=== PATIENT | female | born 1965 | race Caucasian/White ===

== ENCOUNTER 2017-06-23 13:07 | Day surgery (SDC) | payer BC, OTHER ==
[~2017-06-23] VITALS: Ht 160 cm; Wt 77.9 kg
[~2017-06-23 13:07] MED LIST: AMLO10TA2 PO; CART180C3 PO; CRES10TA32 PO; CYCL10TA PO; GEMF600T PO; HYDR25TAB PO; METF10004 PO; NADO40TA PO; NS 1,000 ML IV ONE; OMEP20CA3 PO; POTA20TA6 PO; SPIR25TA2 PO; VENL150C43 PO; VITA1CAP40 PO
[2017-06-23] MEDS ORDERED: LIDOCAINE 2% INJ 100 MG/5 ML SDV (FOR ANES.) As Ordered ONE (14:29)
[2017-06-23] MEDS ORDERED: PROPOFOL 200 MG/20 ML VIAL As Ordered ONE ×2 (14:29→14:38)
--- NOTE | 2017-06-23 14:46 | ROOR ---
Patient Name: Rocio Spencer Procedure Date: 06/23/2017 2:25 PM Date of : 1965 Age: 51 Room: [facility] Gender: Female Note Status: Finalized Procedure: Total Colonoscopy to Cecum + Cold Snare Polypectomy + Hemoclip Indications: High risk colon cancer surveillance: Personal history of colonic polyps, Last colonoscopy: 2013 Providers: Ned Lemos MD Referring MD: AYAD ROBBINS MD Requesting Provider: Medicines: Monitored Anesthesia Care Complications: No immediate complications. Procedure: Pre-Anesthesia Assessment: - The heart rate, respiratory rate, oxygen saturations, blood pressure, adequacy of pulmonary ventilation, and response to care were monitored throughout the procedure. The Colonoscope was introduced through the anus and advanced to the cecum, identified by appendiceal orifice and ileocecal valve. The colonoscopy was performed without difficulty. The patient tolerated the procedure well. The quality of the bowel preparation was good. Findings: The perianal and digital rectal examinations were normal. Non-bleeding internal hemorrhoids were found during retroflexion. The hemorrhoids were small and Grade I (internal hemorrhoids that do not prolapse). A small polyp was found at 60 cm proximal to the anus. The polyp was sessile. The polyp was removed with a cold snare. Resection and retrieval were complete. To prevent bleeding after the polypectomy, one hemostatic clip was successfully placed (MR conditional). There was no bleeding at the end of the procedure. A small polyp was found in the hepatic flexure. The polyp was sessile. The polyp was removed with a jumbo cold forceps. Resection and retrieval were complete. The exam was otherwise without abnormality on direct and retroflexion views. Scattered small-mouthed diverticula were found in the recto-sigmoid colon, sigmoid colon and descending colon. The exam was otherwise without abnormality. Impression: - Non-bleeding internal hemorrhoids. - One small polyp at 60 cm proximal to the anus, removed with a cold snare. Resected and retrieved. Clip (MR conditional) was placed. - One small polyp at the hepatic flexure, removed with a jumbo cold forceps. Resected and retrieved. - The examination was otherwise normal on direct and retroflexion views. - Diverticulosis in the recto-sigmoid colon, in the sigmoid colon and in the descending colon. - The examination was otherwise normal. - The exam was otherwise normal to the cecum. Recommendation: - Patient has a contact number available for emergencies. The signs and symptoms of potential delayed complications were discussed with the patient. Return to normal activities tomorrow. Written discharge instructions were provided to the patient. - High fiber diet. - Discharge patient to home. - Continue present medications. - Await pathology results. - Telephone GI clinic for pathology results in 1 week. - Repeat colonoscopy for surveillance based on pathology results. - Return to referring physician. - Check Portal Online for Path Results.([email or web address] - The findings and recommendations were discussed with the patient's family. Ned Lemos MD Ned Lemos MD 06/23/2017 2:45:59 PM This report has been signed electronically. Number of Addenda: 0 Note Initiated On: 06/23/2017 2:25 PM Estimated Blood Loss: Estimated blood loss: none.
[2017-06-23 15:15] VITALS: BP 163/83
== END 2017-06-23 15:21 | disposition home or self-care (01) ==
LOC: M OPP 13:07
PROVIDERS: ATTEND Internal Medicine Gastroenterology
DX: Z12.11 Encounter for screening for malignant neoplasm of colon (principal); Z86.010 Personal history of colon polyps; D12.4 Benign neoplasm of descending colon; D12.3 Benign neoplasm of transverse colon; K57.30 Diverticulosis of large intestine without perforation or abscess without bleeding; K64.0 First degree hemorrhoids; I10 Essential (primary) hypertension; E78.5 Hyperlipidemia, unspecified; E11.9 Type 2 diabetes mellitus without complications; K44.9 Diaphragmatic hernia without obstruction or gangrene; R12 Heartburn; K21.9 Gastro-esophageal reflux disease without esophagitis; J45.909 Unspecified asthma, uncomplicated; J44.9 Chronic obstructive pulmonary disease, unspecified; M51.9 Unspecified thoracic, thoracolumbar and lumbosacral intervertebral disc disorder; M50.20 Other cervical disc displacement, unspecified cervical region; F41.9 Anxiety disorder, unspecified; F32.9 Major depressive disorder, single episode, unspecified; Z87.891 Personal history of nicotine dependence; Z88.1 Allergy status to other antibiotic agents; Z88.0 Allergy status to penicillin; Z88.2 Allergy status to sulfonamides; Z88.8 Allergy status to other drugs, medicaments and biological substances; Z88.3 Allergy status to other anti-infective agents; Z79.899 Other long term (current) drug therapy

== ENCOUNTER → 2020-05-02 | Outpatient (CLI) | payer BC, OTHER ==
[~2020-05-02] MED LIST changes: -AMLO10TA2 PO; +AMLO1TAB25 PO; +CRES10TA PO; -CRES10TA32 PO; +CYCL-707 PO; -CYCL10TA PO; -GEMF600T PO; +GEMF600T5 PO; -NS 1,000 ML IV ONE; +OMEP1CAP73 PO; -OMEP20CA3 PO; +SPIR-10 PO; -SPIR25TA2 PO; -VITA1CAP40 PO; +VITA50005 PO
--- NOTE | 2020-05-10 12:45 | REP ---
LEFT HIP PAIN HISTORY: Multiple sequences obtained in the axial, coronal, and sagittal planes. The visualized osseous structures of the pelvis demonstrate normal bone marrow signal. There is no bone marrow edema or occult fracture. There is no evidence of avascular necrosis. There is no evidence of a labral tear. No paralabral cyst is seen. There is a normal amount of joint fluid. There is mild increased signal in the tendinous structures along the greater trochanters bilaterally, suggesting mild bilateral greater trochanteric tendinobursitis. No other abnormal signal is seen in the soft tissues surrounding the left hip. Visualized intrapelvic structures are unremarkable with no evidence of mass or free fluid. IMPRESSION: Findings suggestive of mild bilateral greater trochanteric tendinobursitis. No other abnormalities are seen of the left hip. MTDD
== END ==
LOC: M RAD 15:22
PROVIDERS: ATTEND Family Medicine
DX: M25.552 Pain in left hip (principal)

== ENCOUNTER → 2021-08-15 | Outpatient (CLI) | payer BC, OTHER ==
[~2021-08-15] MED LIST changes: +HYDR-3490 PO; -HYDR25TAB PO; +POTA-151 PO; -POTA20TA6 PO
== END ==
LOC: M PLAIMG 13:05
PROVIDERS: ATTEND Nurse Practitioner
DX: M48.062 Spinal stenosis, lumbar region with neurogenic claudication (principal); M54.16 Radiculopathy, lumbar region; M51.36 Other intervertebral disc degeneration, lumbar region; M54.42 Lumbago with sciatica, left side; M54.41 Lumbago with sciatica, right side; G89.29 Other chronic pain

== ENCOUNTER → 2022-08-22 | Outpatient (CLI) | payer BC, OTHER | LOC: M RAD 12:38 | PROVIDERS: ATTEND Nurse Practitioner | DX: M48.062 Spinal stenosis, lumbar region with neurogenic claudication (principal); M51.36 Other intervertebral disc degeneration, lumbar region; M54.42 Lumbago with sciatica, left side; M54.41 Lumbago with sciatica, right side; G89.29 Other chronic pain; M54.16 Radiculopathy, lumbar region ==

== ENCOUNTER 2023-01-08 06:30 | Day surgery (SDC) | payer BC, OTHER ==
[~2023-01-08] VITALS: Ht 154.9 cm; Wt 72.6 kg
[~2023-01-08 06:30] MED LIST changes: +ERGO500029 PO; +GABA-282 PO; +LIPI20TA PO
[2023-01-08] MEDS ORDERED: LR 1,000 ML IV SCH ×2 (07:20→10:35)
[2023-01-08] MEDS ORDERED: ceFAZolin SOD 2 GM in IV 1 EA IV ONE (07:25)
[2023-01-08] MEDS ORDERED: propofoL 200 MG/20 ML VIAL As Ordered ONE (07:48)
[2023-01-08] MEDS ORDERED: MIDAZOLAM INJ 2MG/2ML VIAL As Ordered ONE (07:48)
[2023-01-08] MEDS ORDERED: LIDOCAINE 2% 100MG/5ML SDV (FOR ANES.) As Ordered ONE (07:48)
[2023-01-08] MEDS ORDERED: ONDANSETRON 4MG 2ML VIAL As Ordered ONE (07:48)
[2023-01-08] MEDS ORDERED: ROCURONIUM BROMIDE 50MG/5ML VIAL As Ordered ONE (07:48)
[2023-01-08] MEDS ORDERED: fentaNYL 100 MCG/2 ML INJECTION As Ordered ONE (07:49)
[2023-01-08] MEDS ORDERED: SUGAMMADEX SODIUM 500 MG/5 ML VIAL (BRIDION) As Ordered ONE (07:53)
[2023-01-08] MEDS ORDERED: BUPIVACAINE/EPIN 0.25% 30ML VIAL As Ordered ONE (08:44)
[2023-01-08] MEDS ORDERED: ACETAMINOPHEN 1000MG 100ML IV BAG As Ordered ONE (10:11)
[2023-01-08] MEDS ORDERED: LACRILUBE (AKWA TEARS) OPHTH OINT 3.5GM As Ordered ONE (10:11)
[2023-01-08] MEDS ORDERED: KETOROLAC 60MG 2ML VIAL As Ordered ONE (10:21)
[2023-01-08] MEDS ORDERED: ePHEDrine SULFATE 25 MG/5 ML(5MG/ML) SYRINGE As Ordered ONE (10:25)
[2023-01-08] MEDS ORDERED: PHENYLephrine 500MCG 5ML (100MCG/ML) SYRINGE As Ordered ONE (10:25)
[2023-01-08] MEDS ORDERED: oxyCODONE 5MG TAB PO PRN (10:35)
[2023-01-08] MEDS ORDERED: fentaNYL 100 MCG/2 ML INJECTION IV PRN (10:35)
[2023-01-08] MEDS ORDERED: ONDANSETRON 4MG 2ML VIAL IV PRN (10:35)
[2023-01-08] MEDS: HYDROMORPHONE HCL 0.5 MG/ 0.5 ML SYRINGE IV PRN ×4 (11:10→11:39)
[2023-01-08] MEDS ORDERED: NS 1,000 ML IV SCH (11:40)
[2023-01-08] MEDS ORDERED: traMADol 50 MG TAB PO PRN (11:40)
[2023-01-08 12:30] VITALS: BP 125/77; TEMP 97.7; O2SAT 99
== END 2023-01-08 12:41 | disposition home or self-care (01) ==
LOC: M SDC 06:30
PROVIDERS: ATTEND Surgery
DX: K80.10 Calculus of gallbladder with chronic cholecystitis without obstruction (principal); I10 Essential (primary) hypertension; E78.5 Hyperlipidemia, unspecified; E11.9 Type 2 diabetes mellitus without complications; K44.9 Diaphragmatic hernia without obstruction or gangrene; K21.9 Gastro-esophageal reflux disease without esophagitis; F32.A Depression, unspecified; Z79.84 Long term (current) use of oral hypoglycemic drugs; Z79.899 Other long term (current) drug therapy; Z88.2 Allergy status to sulfonamides; Z88.1 Allergy status to other antibiotic agents
CPT/HCPCS: 47562; 88304; J0131; J0690; J1100; J1170; J1885; J2250; J2370; J2405; J3010; S0020

== ENCOUNTER 2023-12-15 11:58 | Day surgery (SDC) | payer MEDICARE, BC ==
[~2023-12-15] VITALS: Ht 154.9 cm; Wt 74.8 kg
[~2023-12-15 11:58] MED LIST changes: +ATRO0.063 INH; +LIDOCAINE 2% 100MG/5ML SDV (FOR ANES.) As Ordered ONE; -NADO40TA PO; +NADO40TA6 PO; +propofoL 200 MG/20 ML VIAL As Ordered ONE
[2023-12-15] MEDS: NS 1,000 ML IV ONE (12:44)
[2023-12-15] MEDS ORDERED: fentaNYL 100 MCG/2 ML INJECTION As Ordered ONE (13:41)
[2023-12-15 14:09] VITALS: TEMP 97.7
[2023-12-15 14:30] VITALS: BP 114/70; O2SAT 97
== END 2023-12-15 14:37 | disposition home or self-care (01) ==
LOC: M OPP 11:58
PROVIDERS: ATTEND Internal Medicine Gastroenterology
DX: Z12.11 Encounter for screening for malignant neoplasm of colon (principal); K51.40 Inflammatory polyps of colon without complications; K64.0 First degree hemorrhoids; K57.30 Diverticulosis of large intestine without perforation or abscess without bleeding; K44.9 Diaphragmatic hernia without obstruction or gangrene; K31.89 Other diseases of stomach and duodenum; K22.89 Other specified disease of esophagus; R21 Rash and other nonspecific skin eruption; E11.9 Type 2 diabetes mellitus without complications; I10 Essential (primary) hypertension; E78.00 Pure hypercholesterolemia, unspecified; J45.909 Unspecified asthma, uncomplicated; F17.290 Nicotine dependence, other tobacco product, uncomplicated; Z90.49 Acquired absence of other specified parts of digestive tract; Z90.710 Acquired absence of both cervix and uterus; Z79.899 Other long term (current) drug therapy; Z79.84 Long term (current) use of oral hypoglycemic drugs; Z88.2 Allergy status to sulfonamides; Z88.8 Allergy status to other drugs, medicaments and biological substances; Z88.1 Allergy status to other antibiotic agents; Z88.0 Allergy status to penicillin
CPT/HCPCS: 43239; 45385; 88305; J3010